=== PATIENT | male | born 1935 ===

== ENCOUNTER 2017-11-22 06:06 | Day surgery (SDC) | payer MEDICARE, OTHER ==
[2017-11-22] MEDS ORDERED: IV NORMAL SALINE 1000 ML BAG IV ONE (06:07)
[2017-11-22] MEDS ORDERED: [UNRECOGNIZED DRUG - OTHER] IO ONE ×2 (07:00)
[2017-11-22] MEDS ORDERED: CYCLOPENTOLATE 1% OPHT DROP 2 ML BOTTLE ONE (07:04)
[2017-11-22] MEDS ORDERED: CIPROFLOXACIN 0.3% OPHT DROP 2.5 ML BOTTLE ONE (07:04)
[2017-11-22] MEDS ORDERED: TROPICAMIDE 1% OPHT DROP 3 ML BOTTLE ONE (07:04)
[2017-11-22] MEDS ORDERED: FLURBIPROFEN 0.03% OPHT DROP 2.5 ML BOTTLE ONE (07:04)
[2017-11-22] MEDS ORDERED: PHENYLEPHRINE 2.5% OPHT DROP 2 ML BOTTLE ONE (07:04)
[2017-11-22] MEDS ORDERED: LIDOCAINE-MPF 2% 5 ML VIAL ONE (07:50)
[2017-11-22] MEDS ORDERED: MOXIFLOXACIN HCL 3 ML OPHT DROPS ONE (07:50)
[2017-11-22] MEDS ORDERED: NEO/POLYMYX B/DEXAME OPHT OINT 3.5 GM TUBE ONE (07:51)
[2017-11-22] MEDS ORDERED: TIMOLOL MALEATE 0.5% OPHT DROP 5 ML BOTTLE ONE (07:51)
[2017-11-22] MEDS ORDERED: EPINEPHRINE 1 MG/1 ML AMP ONE (07:51)
[2017-11-22] MEDS ORDERED: TETRACAINE HCL 0.5% OPHT DROP 2 ML BOTTLE ONE (07:51)
[2017-11-22] MEDS ORDERED: LIDOCAINE HCL-MPF 1% 5 ML VIAL ONE (07:51)
[2017-11-22] MEDS ORDERED: BUPIVACAINE PF 0.5% 30 ML VIAL ONE (07:52)
[2017-11-22] MEDS ORDERED: HYALURONIDASE,OVINE 200 UNITS/ML VIAL ONE (07:52)
[2017-11-22] MEDS ORDERED: HYALURONATE SODIUM 8.5 MG/0.85 ML DISP.SYRIN ONE (07:52)
[2017-11-22] MEDS ORDERED: BALANCED SALT IRRIG SOLN COMB2 15 ML IRRIG.SOLN ONE (07:52)
[2017-11-22] MEDS ORDERED: ACETYLCHOLINE CHLORIDE 1% OPHT 1 EA KIT ONE (07:52)
[2017-11-22] MEDS ORDERED: HYALURONATE SODIUM 12.8 MG/0.8 ML DISP.SYRIN ONE (07:53)
[2017-11-22] MEDS ORDERED: FENTANYL CITRATE 100 MCG/2 ML AMPUL ONE (08:35)
== END 2017-11-22 10:45 | disposition home or self-care (01) ==
LOC: DS 06:06
PROVIDERS: ATTEND Ophthalmology
DX: E11.36 Type 2 diabetes mellitus with diabetic cataract (principal); I12.9 Hypertensive chronic kidney disease with stage 1 through stage 4 chronic kidney disease, or unspecified chronic kidney disease; E11.22 Type 2 diabetes mellitus with diabetic chronic kidney disease; N18.3 Chronic kidney disease, stage 3 (moderate); N40.0 Benign prostatic hyperplasia without lower urinary tract symptoms; M54.5 Low back pain; E03.9 Hypothyroidism, unspecified; E78.2 Mixed hyperlipidemia; Z90.49 Acquired absence of other specified parts of digestive tract; Z79.899 Other long term (current) drug therapy; D69.6 Thrombocytopenia, unspecified
CPT/HCPCS: 66984; 71045; 82962; A4663; J1580; J3010; J3471; J3490 ×3; J7030 ×2; J7321 ×2; V2632; J0171